=== PATIENT | female | born 1945 | race Caucasian/White ===

== ENCOUNTER 2020-09-02 20:47 | Emergency (ER) | payer MEDICARE ==
[2020-09-02] MEDS ORDERED: HYDROCODON-ACE1 EAC4 PO (22:17)
== END 2020-09-02 22:46 | disposition home or self-care (01) ==
LOC: ER1 20:47
DX: S01.81XA Laceration without foreign body of other part of head, initial encounter (principal); S61.412A Laceration without foreign body of left hand, initial encounter; I10 Essential (primary) hypertension; E03.9 Hypothyroidism, unspecified; W22.8XXA Striking against or struck by other objects, initial encounter; Y92.009 Unspecified place in unspecified non-institutional (private) residence as the place of occurrence of the external cause
CPT/HCPCS: 12011; 70450; 72125; 73030; 73080; 73110; 99284